=== PATIENT | male | born 1960 | race Caucasian/White ===

== ENCOUNTER → 2018-02-28 | Emergency (ER) | payer OTHER ==
[~2018-02-28] VITALS: Ht 180.3 cm; Wt 99.8 kg
[~2018-02-28] MED LIST: CATAFLAM50 MG PO; COZAAR25 MG PO; FORTAMET1000 MG PO; GLUMETZA1000 MG; ORPH100T PO
== END | disposition home or self-care (01) ==
LOC: ER 15:50
DX: L97.528 Non-pressure chronic ulcer of other part of left foot with other specified severity (principal); L08.89 Other specified local infections of the skin and subcutaneous tissue

== ENCOUNTER 2022-07-21 07:57 | Outpatient (CLI) | payer OTHER | END 2022-07-21 07:59 | disposition home or self-care (01) | LOC: NUCLEAR 07:57 | PROVIDERS: ATTEND Specialist | DX: I73.9 Peripheral vascular disease, unspecified (principal) ==

== ENCOUNTER 2022-07-24 13:53 | Inpatient (IN) | payer OTHER ==
[~2022-07-24] VITALS: Ht 180.3 cm; Wt 106.6 kg
[~2022-07-24 13:53] MED LIST changes: -ATORVASTATIN CA10 MG; -GLIPIZIDE10 MG
[2022-07-25] MEDS ORDERED: GLIPIZIDE10 MG (07:45)
[2022-07-25] MEDS ORDERED: ATORVASTATIN CA10 MG (07:45)
== END 2022-07-29 20:17 | disposition home or self-care (01) | DRG 638 ==
LOC: ER 13:53 → MEDJ 18:34
PROVIDERS: ADMIT Internal Medicine; ATTEND Internal Medicine
PROC: 8E0ZXY6 Isolation (ICD-10-PCS; 2022-07-24)
PROC: 0JDR3ZZ Extraction of Left Foot Subcutaneous Tissue and Fascia, Percutaneous Approach (ICD-10-PCS; principal; 2022-07-25)
PROC: BL31ZZZ Magnetic Resonance Imaging (MRI) of Lower Extremity Connective Tissue (ICD-10-PCS; 2022-07-25)
PROC: B246ZZZ Ultrasonography of Right and Left Heart (ICD-10-PCS; 2022-07-25)
DX: E11.621 Type 2 diabetes mellitus with foot ulcer (principal); L03.116 Cellulitis of left lower limb; L97.423 Non-pressure chronic ulcer of left heel and midfoot with necrosis of muscle; L97.412 Non-pressure chronic ulcer of right heel and midfoot with fat layer exposed; E11.51 Type 2 diabetes mellitus with diabetic peripheral angiopathy without gangrene; E11.610 Type 2 diabetes mellitus with diabetic neuropathic arthropathy; E11.65 Type 2 diabetes mellitus with hyperglycemia; I25.10 Atherosclerotic heart disease of native coronary artery without angina pectoris; I11.9 Hypertensive heart disease without heart failure; B96.5 Pseudomonas (aeruginosa) (mallei) (pseudomallei) as the cause of diseases classified elsewhere; B95.2 Enterococcus as the cause of diseases classified elsewhere; Z79.84 Long term (current) use of oral hypoglycemic drugs; Z20.822 Contact with and (suspected) exposure to COVID-19

== ENCOUNTER → 2022-07-24 | Outpatient (CLI) | payer OTHER ==
[~2022-07-24] MED LIST changes: +ATORVASTATIN CA10 MG; +GLIPIZIDE10 MG
== END | disposition home or self-care (01) ==
LOC: NUCLEAR 06:45
PROVIDERS: ATTEND Specialist
DX: I87.2 Venous insufficiency (chronic) (peripheral) (principal)